=== PATIENT | male | born 1995 | race Caucasian/White ===

== ENCOUNTER 2016-09-30 22:12 | Emergency (ER) | payer OTHER ==
[~2016-09-30] VITALS: Ht 180.3 cm; Wt 99.8 kg
[2016-09-30] MEDS ORDERED: LIDOCAINE 2% MDV 20 ML VIAL SC ONE (23:00)
[2016-10-01] MEDS ORDERED: BACTRIM 160MG/800MG DS TAB PO ONE
[2016-10-01] MEDS ORDERED: NORCOTAB PO (00:01)
[2016-10-01] MEDS ORDERED: BACT800T5 PO (00:01)
[2016-10-01 00:14] VITALS: BP 148/73
== END 2016-10-01 00:15 | disposition home or self-care (01) ==
LOC: M ED 22:47
DX: L03.031 Cellulitis of right toe (principal)